=== PATIENT | female | born 1945 | race Caucasian/White ===

== ENCOUNTER → 2020-05-28 | Outpatient (CLI) | payer MEDICARE, BC | LOC: KOH-I 13:29 | DX: M54.5 Low back pain (principal); M51.36 Other intervertebral disc degeneration, lumbar region | CPT/HCPCS: 72100 ==

== ENCOUNTER → 2020-06-17 | Outpatient (CLI) | payer MEDICARE, BC | LOC: KOH-I 14:59 | DX: M54.16 Radiculopathy, lumbar region (principal); M51.34 Other intervertebral disc degeneration, thoracic region | CPT/HCPCS: 72070 ==

== ENCOUNTER → 2020-06-27 | Outpatient (CLI) | payer MEDICARE, BC | LOC: KOH-I 10:27 | DX: M51.16 Intervertebral disc disorders with radiculopathy, lumbar region (principal) | CPT/HCPCS: 72148 ==

== ENCOUNTER → 2020-07-25 | Outpatient (CLI) | payer MEDICARE, BC | LOC: KOH-I 13:18 | DX: M51.36 Other intervertebral disc degeneration, lumbar region (principal); M43.16 Spondylolisthesis, lumbar region; M47.816 Spondylosis without myelopathy or radiculopathy, lumbar region | CPT/HCPCS: 72110 ==

== ENCOUNTER → 2021-03-10 | Outpatient (CLI) | payer MEDICARE, BC | LOC: MAMO 11:21 | DX: Z12.31 Encounter for screening mammogram for malignant neoplasm of breast (principal) | CPT/HCPCS: 77063; 77067 ==

== ENCOUNTER → 2021-04-16 | Outpatient (CLI) | payer MEDICARE, BC | LOC: MAMO 03-26 14:00 → US 03-26 14:30 → MAMO 04-08 13:00 → US 04-08 13:30 → MAMO 12:18 | DX: R92.8 Other abnormal and inconclusive findings on diagnostic imaging of breast (principal); R92.1 Mammographic calcification found on diagnostic imaging of breast | CPT/HCPCS: 76642-LT; 77066; G0279 ==

== ENCOUNTER → 2021-05-26 | Outpatient (CLI) | payer MEDICARE, BC | LOC: MRI 05-16 14:00 | DX: M47.26 Other spondylosis with radiculopathy, lumbar region (principal); M43.16 Spondylolisthesis, lumbar region; M47.817 Spondylosis without myelopathy or radiculopathy, lumbosacral region; M51.16 Intervertebral disc disorders with radiculopathy, lumbar region; M51.87 Other intervertebral disc disorders, lumbosacral region | CPT/HCPCS: 72148 ==

== ENCOUNTER → 2021-06-25 | Outpatient (CLI) | payer MEDICARE, BC | LOC: KOH-I 08:27 | DX: M47.26 Other spondylosis with radiculopathy, lumbar region (principal); M48.061 Spinal stenosis, lumbar region without neurogenic claudication; M43.16 Spondylolisthesis, lumbar region | CPT/HCPCS: 72131 ==

== ENCOUNTER → 2021-07-20 | Outpatient (CLI) | payer MEDICARE, BC ==
[~2021-07-20] MED LIST: ACTOS30 MG PO; ALPRAZOLAM0.5 MG PO; COREG CR20 MG PO; CRESTOR10 MG PO; FARXIGA10 MG PO; GABAPENTIN300 MG PO; HYDROCODON-ACE1 EAC2 PO; JANUMET XR 1001 EACH PO; LISINOPRIL-HCT1 EAC1 PO; MIRAPEX1 MG PO; OMEGA-31000 MG PO; ROXICODONE5 MG PO; ULORIC80 MG PO
== END ==
LOC: LAB 15:03
PROVIDERS: Orthopaedic Surgery
DX: Z01.812 Encounter for preprocedural laboratory examination (principal)
CPT/HCPCS: 36415; 80048; 86850; 86900; 86901; 86920; 86927; P9017

== ENCOUNTER 2021-07-21 05:22 | Inpatient (IN) | payer MEDICARE, BC ==
[~2021-07-21] VITALS: Ht 157.5 cm; Wt 74.8 kg
[~2021-07-21 05:22] MED LIST changes: -OMEGA-31000 MG PO; -ROXICODONE5 MG PO
[2021-07-21 10:38] LABS: HEMOGLOBIN 10.2 gm/dl (12.3-15.3)
[2021-07-21 15:22] LABS: RED BLOOD COUNT 2.62 M/UL (4.00-5.10); WHITE BLOOD COUNT 9.4 K/UL (4.5-11.0)
[2021-07-21 15:32] LABS: HEMOGLOBIN 8.1 gm/dl (12.3-15.3)
[2021-07-21] MEDS ORDERED: OMEGA-31000 MG PO (17:36)
[2021-07-22 05:19] LABS: HEMOGLOBIN 9.5 gm/dl (12.3-15.3); RED BLOOD COUNT 3.22 M/UL (4.00-5.10); WHITE BLOOD COUNT 13.8 K/UL (4.5-11.0)
[2021-07-23 06:36] LABS: HEMOGLOBIN 7.1 gm/dl (12.3-15.3); RED BLOOD COUNT 2.3 M/UL (4.00-5.10)
[2021-07-24 05:13] LABS: HEMOGLOBIN 9.5 gm/dl (12.3-15.3); WHITE BLOOD COUNT 8.5 K/UL (4.5-11.0)
[2021-07-24 05:16] LABS: RED BLOOD COUNT 3.12 M/UL (4.00-5.10)
[2021-07-25 06:00] LABS: HEMOGLOBIN 9.7 gm/dl (12.3-15.3); RED BLOOD COUNT 3.19 M/UL (4.00-5.10); WHITE BLOOD COUNT 7.6 K/UL (4.5-11.0)
[2021-07-26 05:50] LABS: HEMOGLOBIN 9.4 gm/dl (12.3-15.3); RED BLOOD COUNT 3.14 M/UL (4.00-5.10); WHITE BLOOD COUNT 6.3 K/UL (4.5-11.0)
[2021-07-26 06:19] LABS: BUN/CREATININE RATIO 22 (0-10)
[2021-07-27 05:46] LABS: HEMOGLOBIN 9.2 gm/dl (12.3-15.3); RED BLOOD COUNT 3.07 M/UL (4.00-5.10); WHITE BLOOD COUNT 5.7 K/UL (4.5-11.0)
[2021-07-28 05:06] LABS: HEMOGLOBIN 9.5 gm/dl (12.3-15.3); RED BLOOD COUNT 3.14 M/UL (4.00-5.10)
[2021-07-28] MEDS ORDERED: ROXICODONE5 MG PO (07:14)
== END 2021-07-28 12:15 | disposition home health service (06) | DRG 453 ==
LOC: OR 05:22 → CCU 16:28 → OR 20:00 → CCU 07-28 12:15
PROVIDERS: Internal Medicine; ADMIT Orthopaedic Surgery
PROC: 0SG00AJ Fusion of Lumbar Vertebral Joint with Interbody Fusion Device, Posterior Approach, Anterior Column, Open Approach (ICD-10-PCS; 2021-07-21)
PROC: 0SG3071 Fusion of Lumbosacral Joint with Autologous Tissue Substitute, Posterior Approach, Posterior Column, Open Approach (ICD-10-PCS; 2021-07-21)
PROC: 0SG0071 Fusion of Lumbar Vertebral Joint with Autologous Tissue Substitute, Posterior Approach, Posterior Column, Open Approach (ICD-10-PCS; 2021-07-21)
PROC: 01NB0ZZ Release Lumbar Nerve, Open Approach (ICD-10-PCS; 2021-07-21)
PROC: 01NR0ZZ Release Sacral Nerve, Open Approach (ICD-10-PCS; 2021-07-21)
PROC: 0SB20ZZ Excision of Lumbar Vertebral Disc, Open Approach (ICD-10-PCS; 2021-07-21)
PROC: 0SB40ZZ Excision of Lumbosacral Disc, Open Approach (ICD-10-PCS; 2021-07-21)
PROC: 4A11X4G Monitoring of Peripheral Nervous Electrical Activity, Intraoperative, External Approach (ICD-10-PCS; 2021-07-21)
PROC: 3E043XZ Introduction of Vasopressor into Central Vein, Percutaneous Approach (ICD-10-PCS; principal; 2021-07-21 07:30)
PROC: 30233N1 Transfusion of Nonautologous Red Blood Cells into Peripheral Vein, Percutaneous Approach (ICD-10-PCS; 2021-07-21 07:30)
DX: M47.896 Other spondylosis, lumbar region (principal); J96.01 Acute respiratory failure with hypoxia; T81.19XA Other postprocedural shock, initial encounter; D62 Acute posthemorrhagic anemia; N17.9 Acute kidney failure, unspecified; Z20.822 Contact with and (suspected) exposure to COVID-19; I95.81 Postprocedural hypotension; M54.16 Radiculopathy, lumbar region; E78.5 Hyperlipidemia, unspecified; K21.9 Gastro-esophageal reflux disease without esophagitis; M48.061 Spinal stenosis, lumbar region without neurogenic claudication; M43.16 Spondylolisthesis, lumbar region; I12.9 Hypertensive chronic kidney disease with stage 1 through stage 4 chronic kidney disease, or unspecified chronic kidney disease; N18.30 Chronic kidney disease, stage 3 unspecified; E11.22 Type 2 diabetes mellitus with diabetic chronic kidney disease; E11.21 Type 2 diabetes mellitus with diabetic nephropathy; Z96.653 Presence of artificial knee joint, bilateral; M54.9 Dorsalgia, unspecified; G89.29 Other chronic pain; M10.9 Gout, unspecified; F41.9 Anxiety disorder, unspecified; G25.81 Restless legs syndrome; K59.00 Constipation, unspecified; Z90.49 Acquired absence of other specified parts of digestive tract; Z98.890 Other specified postprocedural states
CPT/HCPCS: 36415; 71045; 72100; 72110; 76000; 80048; 82962; 85014; 85018; 85027; 86850; 86900; 86901; 86920; 86927; 94664; 94760; 97116-GP-CQ; 97162; 97166; 97530; 97530-GP-CQ; 97535; C1713; C1762; C9113; J0690; J1100; J1170; J1650; J2001; J2370; J2405; J2704; J3010; J3370; J7030; J7040; J7120; P9016; P9017

== ENCOUNTER 2021-08-08 14:11 | Inpatient (IN) | payer MEDICARE, BC ==
[~2021-08-08] VITALS: Ht 160 cm; Wt 74.4 kg
[~2021-08-08 14:11] MED LIST changes: -DOCUSATE SODIU100 MG PO; -METFORMIN HCL1000 MG PO; -SODIUM CHLORIDE3 ML INH; -TYLENOL 8 HOUR650 MG PO
[2021-08-08] MEDS ORDERED: DOCUSATE SODIU100 MG PO (15:09)
[2021-08-08] MEDS ORDERED: TYLENOL 8 HOUR650 MG PO (15:09)
[2021-08-08] MEDS ORDERED: METFORMIN HCL1000 MG PO (15:09)
[2021-08-08] MEDS ORDERED: SODIUM CHLORIDE3 ML INH (15:10)
--- NOTE | 2021-08-08 15:43 | NUR ---
PATIENT ASSESSED RESTING IN BED. AT BEDSIDE. NO COMPLAINS NOTED
--- NOTE | 2021-08-08 17:49 | NUR ---
SPOKE WITH DR MCCLURE ABOUT PT PAIN MEDS. OXYCODONE 10MG EVERY 4 HOURS AND DIALUDID 0.5 EVERY 4 HOURS FOR BREAKTHRU PAIN
[2021-08-09 03:33] LABS: RED BLOOD COUNT 3.42 M/UL (4.00-5.10); WHITE BLOOD COUNT 6.4 K/UL (4.5-11.0)
[2021-08-10 03:46] LABS: HEMOGLOBIN 10.2 gm/dl (12.3-15.3); RED BLOOD COUNT 3.44 M/UL (4.00-5.10)
[2021-08-10 04:14] LABS: BUN/CREATININE RATIO 18 (0-10)
[2021-08-11 02:35] LABS: HEMOGLOBIN 10.2 gm/dl (12.3-15.3); RED BLOOD COUNT 3.5 M/UL (4.00-5.10); WHITE BLOOD COUNT 6.2 K/UL (4.5-11.0)
--- NOTE | 2021-08-11 10:42 | NUR ---
Anthony Rojas called to make sure 08/12/21 heparin dose was on hold and to also hold the 08/11/21 2200 dose of heparin.
[2021-08-12 10:14] LABS: IRON BIND.CAP.(TIBC) 290 ug/dL (250-450); IRON SATURATION 13 % (15-55); IRON, SERUM 38 ug/dL (27-139); UIBC 252 ug/dL (118-369)
[2021-08-12 19:20] LABS: HEMOGLOBIN 9.7 gm/dl (12.3-15.3); RED BLOOD COUNT 3.32 M/UL (4.00-5.10)
[2021-08-13 05:24] LABS: HEMOGLOBIN 8.6 gm/dl (12.3-15.3)
[2021-08-13 05:29] LABS: RED BLOOD COUNT 2.97 M/UL (4.00-5.10); WHITE BLOOD COUNT 6.6 K/UL (4.5-11.0)
[2021-08-13 13:21] LABS: BUN/CREATININE RATIO 27 (0-10)
[2021-08-14 09:28] LABS: HEMOGLOBIN 7.8 gm/dl (12.3-15.3); WHITE BLOOD COUNT 7.8 K/UL (4.5-11.0)
[2021-08-14 09:29] LABS: RED BLOOD COUNT 2.66 M/UL (4.00-5.10)
[2021-08-14 12:50] LABS: HEMOGLOBIN 8.1 gm/dl (12.3-15.3)
[2021-08-15 07:12] LABS: WHITE BLOOD COUNT 7.3 K/UL (4.5-11.0)
[2021-08-15 07:15] LABS: RED BLOOD COUNT 2.26 M/UL (4.00-5.10)
[2021-08-15 07:16] LABS: HEMOGLOBIN 6.7 gm/dl (12.3-15.3)
[2021-08-15 07:43] LABS: BUN/CREATININE RATIO 28 (0-10)
[2021-08-15] MEDS ORDERED: DOCUSATE SODIU100 MG PO (10:26)
[2021-08-15 17:08] LABS: HEMOGLOBIN 8.9 gm/dl (12.3-15.3)
[2021-08-16 04:19] LABS: HEMOGLOBIN 8.4 gm/dl (12.3-15.3); WHITE BLOOD COUNT 6.5 K/UL (4.5-11.0)
[2021-08-16 04:20] LABS: RED BLOOD COUNT 2.87 M/UL (4.00-5.10)
[2021-08-16 04:35] LABS: BUN/CREATININE RATIO 26 (0-10)
== END 2021-08-16 17:08 | DRG 460 ==
LOC: M/S 14:11 → CCU 14:11
PROVIDERS: Family Medicine; Internal Medicine; Nurse Practitioner Family; ADMIT Orthopaedic Surgery
PROC: 0SH804Z Insertion of Internal Fixation Device into Left Sacroiliac Joint, Open Approach (ICD-10-PCS; 2021-08-12)
PROC: 0SH704Z Insertion of Internal Fixation Device into Right Sacroiliac Joint, Open Approach (ICD-10-PCS; 2021-08-12)
PROC: 3E0U0GB Introduction of Recombinant Bone Morphogenetic Protein into Joints, Open Approach (ICD-10-PCS; 2021-08-12)
PROC: 0SG0071 Fusion of Lumbar Vertebral Joint with Autologous Tissue Substitute, Posterior Approach, Posterior Column, Open Approach (ICD-10-PCS; principal; 2021-08-12 11:15)
PROC: 30233N1 Transfusion of Nonautologous Red Blood Cells into Peripheral Vein, Percutaneous Approach (ICD-10-PCS; 2021-08-15)
DX: S32.19XA Other fracture of sacrum, initial encounter for closed fracture (principal); D62 Acute posthemorrhagic anemia; M80.88XA Other osteoporosis with current pathological fracture, vertebra(e), initial encounter for fracture; Z20.822 Contact with and (suspected) exposure to COVID-19; M47.898 Other spondylosis, sacral and sacrococcygeal region; M54.18 Radiculopathy, sacral and sacrococcygeal region; M46.1 Sacroiliitis, not elsewhere classified; I10 Essential (primary) hypertension; E11.40 Type 2 diabetes mellitus with diabetic neuropathy, unspecified; E78.5 Hyperlipidemia, unspecified; G25.81 Restless legs syndrome; F41.9 Anxiety disorder, unspecified; E83.42 Hypomagnesemia
CPT/HCPCS: 36415; 36430; 71045; 72110; 72131; 72202; 76000; 80048; 80053; 81001; 82550; 82553; 82962; 83036; 83540; 83550; 83735; 83880; 85014; 85018; 85025; 85027; 85610; 86850; 86900; 86901; 86920; 87086; 93005; 97110-GP-CQ; 97116-GP-CQ; 97161; 97166; 97530; C1713; J0690; J1100; J1170; J1644; J1885; J2001; J2250; J2405; J2704; J3010; J3370; J3475; J7040; P9016

== ENCOUNTER → 2021-08-08 | Outpatient (CLI) | payer MEDICARE, BC ==
[~2021-08-08] MED LIST changes: +DOCUSATE SODIU100 MG PO; -JANUMET XR 1001 EACH PO; +JANUVIA100 MG PO; +METFORMIN HCL1000 MG PO; +OMEGA-31000 MG PO; +ROXICODONE5 MG PO; +SODIUM CHLORIDE3 ML INH; +TYLENOL 8 HOUR650 MG PO
== END ==
LOC: KOH-I 11:16
DX: S32.19XA Other fracture of sacrum, initial encounter for closed fracture (principal)
CPT/HCPCS: 72131

== ENCOUNTER → 2021-09-25 | Outpatient (CLI) | payer MEDICARE, BC ==
[~2021-09-25] MED LIST changes: +DOCUSATE SODIU100 MG PO; +METFORMIN HCL1000 MG PO; +SODIUM CHLORIDE3 ML INH; +TYLENOL 8 HOUR650 MG PO
== END ==
LOC: OPSV 11:00
DX: D50.9 Iron deficiency anemia, unspecified (principal)
CPT/HCPCS: 96365; J1756

== ENCOUNTER → 2021-10-03 | Outpatient (CLI) | payer MEDICARE, BC ==
[~2021-10-03] VITALS: Ht 157.5 cm; Wt 73.9 kg
== END ==
LOC: OPSV 11:58
DX: D50.9 Iron deficiency anemia, unspecified (principal)
CPT/HCPCS: 96365; J1756

== ENCOUNTER → 2021-10-10 | Outpatient (CLI) | payer MEDICARE, BC ==
[~2021-10-10] VITALS: Ht 157.5 cm; Wt 73.9 kg
== END ==
LOC: OPSV 09:00
DX: D50.9 Iron deficiency anemia, unspecified (principal)
CPT/HCPCS: 96365; J1756

== ENCOUNTER → 2021-10-15 | Outpatient (CLI) | payer MEDICARE, BC ==
[~2021-10-15] VITALS: Ht 157.5 cm; Wt 73.9 kg
== END ==
LOC: OPSV 09:00
DX: D50.9 Iron deficiency anemia, unspecified (principal)
CPT/HCPCS: 96365; J1756